=== PATIENT | female | born 1990 ===

== ENCOUNTER 2020-10-14 13:36 | Emergency (ER) | payer OTHER, SELFPAY ==
--- NOTE | ~2020-10-14 | XR_ITS ---
EXAMINATION: XR chest 2V DATE: 10/14/2020 14:16 INDICATION: One day of cough TECHNIQUE: PA and lateral views of the chest were obtained. COMPARISON: None FINDINGS: The lungs are clear with no focal airspace opacities, pulmonary edema, pleural effusion or pneumothor ax. The cardiomediastinal silhouette is normal. Visualized bones and soft tissues are unremarkable. IMPRESSION: 1. Normal chest radiograph. Reviewed, dictated and finalized at location A. IMPRESSION: 1. Normal chest radiograph.
[2020-10-14 13:40] VITALS: BP 146/92; PULSE 104; RESP 18; TEMP 36.1; O2SAT 96
--- NOTE | 2020-10-14 13:51 | PC.NURSE ---
Arrives ambulatory steady gait from triage, c/o x1 day cold-like symptoms including congested cough with green mucus, CP following coughing, SOB on exertion. States symptoms are worse at night. Denies cigarette smoke, +vapes. No resp distress
[2020-10-14 14:07] VITALS: TEMP 36.8
--- NOTE | 2020-10-14 14:27 | ED.URI ---
HPI - URI/Sore Throat General Chief Complaint: Upper Respiratory Infection Stated Complaint: Having a lot of chest pain, throat pain,congestion Time Seen by Provider: 10/14/20 13:55 History of Present Illness HPI Narrative: Patient is a 29-year-old female who presents to the ER with cold symptoms. Yesterday she began having sinus congestion and sore throat. She has productive cough but feels like she has chest congestion. She is concerned she might have pneumonia. No difficulty breathing. A coworker had similar symptoms. Related Data Allergies Allergy/AdvReac Type Severity Reaction Status Date / Time No Known Allergies Allergy Unverified 10/14/20 13:54 Review of Systems Constitutional: Constitutional: Denies chills and Denies fever(s) ENT: Reports nasal congestion and Reports sore throat Respiratory: Respiratory: Reports chest congestion, Reports cough, Reports excessive phlegm production and Denies dyspnea Gastrointestinal: Gastrointestinal: Denies abdominal pain, Denies nausea and Denies vomiting PMFSH Past Medical History Medical History (Updated 10/14/20 @ 14:32 by Martell Blancas MD) Healthy female adult Surgical History Surgical History (Updated 10/14/20 @ 14:30 by Martell Blancas MD) No history of previous surgery Social History Social History Smoking status: Current every day smoker Alcohol intake: never Gender identity (if verbalized by the patient): Female Exam Narrative: Exam Narrative: GENERAL: Well-appearing, well-nourished, and in no acute distress. HEAD: Normocephalic, atraumatic. ENT: Mucous membranes moist. No tonsillar hypertrophy or exudate. Uvula midline and nonedematous. CHEST: Clear to auscultation. No respiratory distress. HEART: Regular rate and rhythm. Normal peripheral pulses. NEURO:Alert and oriented x3. PSYCH: Normal mood and affect. Course Vital Signs Vital signs: Vital Signs Temperature 96.9 F L 10/14/20 13:40 Pulse Rate 104 H 10/14/20 13:40 Respiratory Rate 18 10/14/20 13:40 Blood Pressure 146/92 H 10/14/20 13:40 Pulse Oximetry 96 10/14/20 13:40 Temperature 98.2 F 10/14/20 14:07 Pulse Rate 104 H 10/14/20 13:40 Respiratory Rate 18 10/14/20 13:40 Blood Pressure 146/92 H 10/14/20 13:40 Pulse Oximetry 96 10/14/20 13:40 Discharge Plan Discharge Clinical Impression: Upper respiratory infection Patient Disposition: Home, Self-Care Condition: Stable Instructions: Upper Respiratory Infection (ED) Additional Instructions: Return the ER if you cannot breathe, you cannot keep down food or water, you lose consciousness, you have additional concerns. Prescriptions: New Sudafed 24 Hour 240 mg tablet extended release 24 hr 240 mg PO DAILY PRN (Reason: nasal congestion) Qty: 7 RF: 0 Follow-up/Referrals: PHYSICIAN,[employer] [Primary Care Provider] - Contreras Levin MD [Physician] - 1 Week
== END 2020-10-14 14:44 | disposition home or self-care (01) ==
PROVIDERS: Emergency Provider Emergency Medicine
DX: J06.9 Acute upper respiratory infection, unspecified (principal); F17.200 Nicotine dependence, unspecified, uncomplicated
CPT/HCPCS: 71046; 99283